=== PATIENT | female | born 1995 | race Caucasian/White ===

== ENCOUNTER 2019-09-05 09:53 | Inpatient (IN) ==
[2019-09-05] MEDS ORDERED: OXYTOCIN 30 UNITS/500 ML BAG IV PRN ×2 (10:18→19:00)
--- NOTE | 2019-09-05 11:17 | History & Physical Report ---
Date of Service September 05, 2019 Assessment & Plan (1) Normal labor: Plan admit. expectant management. arom / pit if indicated . epidural on request. fetus category one. anticipate . History of Present Illness Chief Complaint: contractions Primary Care Provider: NO PCP Patient is a 23yowf with iup at 39 4/7 weeks who presents to labor and delivery c/o contractions. Notes started earlier this am. no lof/vb. +fm. uncomplicated. labs--O+/ab-/ri/rprnr/hepb-/hiv-/gc/ct-/gbs neg/ failed 28 week gtt and passed 2 hr declined genetics/cf/sma Allergies Allergy/AdvReac Type Severity Reaction Status Date / Time cefadroxil Allergy Intermediate Hives Verified 09/01/19 09:42 Penicillins Allergy Intermediate Hives Verified 09/01/19 09:42 amoxicillin Allergy Hives Verified 09/01/19 09:42 Home Medications Home Medications Medication Instructions Recorded Confirmed Type prenat.vits,isabel,wtu-gyzj-eocqa 1 tab PO DAILY 01/29/19 09/05/19 History Patient History Medical History (Updated 09/05/19 @ 11:15 by Izzy Mata MD, FACOG) Encounter for anatomic survey Varicella vaccination Surgical History [place] teeth removed Family History Father Diabetes Uncle Diabetes Grandfather (Maternal) Hypertension Grandmother (Maternal) Heart disease Myocardial infarction Hypercholesteremia Ovarian cancer Social History Preferred Language: Tanzanian Communication Ability: Effective Fiberglasser Required: No Beliefs That Will Affect Care: None marital status: Single marital status details: Josue José (23) [phone] Current Living Situation: Significant Other Current Living Situation Comment: Quan and child, 2 dogs current occupational status: unemployed current occupation: homemaker Other Information That Helps Us Care for You: No Feels Safe at Home: Yes Smoking Status: Never smoker Second Hand Exposure: No ; Hx Alcohol Use: No Hx Substance Use: No OB History 02/16--40 weeks, , 9#8oz, no issues [employer] History hx of ascus paps no stds Review of Systems as per Subjective / HPI Physical Exam Constitutional: WD/WN, vitals as above Gastrointestinal (Abdomen): soft, gravid, nt Psychiatric: A+Ox3, euthymic affect Genitourinary: cx--/-2 (last check closed and long) toco--q2-4min efm--category one strip Results & Data Vital Signs (Past 12 Hours) Vital Signs Temp Pulse Resp BP 09/05/19 10:01 86 117/71 09/05/19 09:59 36.6 C 18 Code Status & VTE Plan VTE Prophylaxis Plan VTE Prophylaxis will be ordered: No Coding Level of Care Code None Diagnoses Normal labor O80; Z37.9
[2019-09-05 11:19] LABS: Hematocrit (blood only) 41.3 % (37-47); Hemoglobin 14.7 g/dL (12.0-16.0); Mean Corpuscular Hemoglobin 33.1 pg (25-34); Mean Corpuscular Hgb Conc 35.6 g/dL (32-36); Mean Platelet Volume 12.6 fL (7.4-10.4); Platelet Count 97 K/uL (130-400); Platelet Estimate Decreased (Normal); RDW Coefficient of Variation 14.9 % (11.5-14.5); RDW Standard Deviation 50.6 fL (36.4-46.3); Red Blood Count 4.44 M/uL (4.2-5.4); White Blood Count 9.01 K/uL (4.8-10.8)
[2019-09-05 12:52] LABS: Albumin Level 3.2 gm/dl (3.4-5.0); BUN Creatinine Ratio 13.5 (10-20); Calcium 8.9 mg/dl (8.5-10.1); Creatinine Clr Calc Pharmacy 168.6 ml/min; Est GFR (African American) 148.5; Est GFR (Non-African American) 128.1; Potassium 3.7 mmol/L (3.5-5.1)
[2019-09-05 12:55] LABS: Albumin Globulin Ratio 0.9 (0.9-2); Bilirubin,Total 0.5 mg/dl (0.2-1); Globulin 3.7 gm/dl (2.5-4.0); Total Protein 6.9 gm/dl (6.4-8.2)
[2019-09-05] MEDS: LACTATED RINGER'S 1,000 ML IV PRN ×3 (13:05→15:43)
--- NOTE | 2019-09-05 13:09 | Labor Progress Brief Note ---
Date of Service September 05, 2019 Subjective More uncomfortable Assessment & Plan (1) Normal labor: desires epidural. Once comfortable, plan arom. anticipate . Physical Exam Constitutional: WD/WN, vitals as above Psychiatric: A+Ox3, euthymic affect Genitourinary: cx--/-2/post efm--category one toco--q2-4min Results & Data Vital Signs (Past 12 Hours) Vital Signs Temp Pulse Resp BP 09/05/19 12:56 96 H 112/61 09/05/19 12:18 18 09/05/19 10:01 86 117/71 09/05/19 10:00 36.6 C 18 09/05/19 09:59 36.6 C 18 Coding Level of Care Code None Diagnoses Normal labor O80; Z37.9
[2019-09-05] MEDS ORDERED: BUPIVACAINE 0.25% 30 ML VIAL ONE (13:10)
[2019-09-05] MEDS ORDERED: fentaNYL citrate 100 MCG/2 ML VIAL ONE (13:10)
[2019-09-05] MEDS ORDERED: ePHEDrine sulfate 50 MG/ML AMP ONE (13:10)
[2019-09-05] MEDS ORDERED: fentaNYL 2MCG/ML ROPIV 1.25MG/ML 100 ML BAG EPI ONE (13:11)
--- NOTE | 2019-09-05 13:20 | Anesthesiology Consultation ---
Date of Service September 05, 2019 Assessment & Plan (1) Encounter for pre-operative examination: Chart Review Chart Review: Acceptable Risk for Labor Epidural History Height/Weight Height: 5 ft 6 in Weight: 91.172 kg Allergies Allergy/AdvReac Type Severity Reaction Status Date / Time cefadroxil Allergy Intermediate Hives Verified 09/01/19 09:42 Penicillins Allergy Intermediate Hives Verified 09/01/19 09:42 amoxicillin Allergy Hives Verified 09/01/19 09:42 Medications Home Medications Medication Instructions Recorded Confirmed Last Taken prenat.vits,isabel,mys-xwlc-lksof 1 tab PO DAILY 01/29/19 09/05/19 09/04/19 Active Medications Generic Name Dose Route Start Last Admin Trade Name Freq PRN Reason Stop Dose Admin Lactated Ringer's 1,000 mls @ 125 mls/hr 09/05/19 10:18 09/05/19 13:05 Lr IV 09/07/19 10:17 999 mls/hr .Q8H PRN Administration L&D Protocol Protocol Past Medical History Medical History Encounter for anatomic survey Varicella vaccination Past Family History Family History Father Diabetes Uncle Diabetes Grandfather (Maternal) Hypertension Grandmother (Maternal) Heart disease Myocardial infarction Hypercholesteremia Ovarian cancer Past Surgical History Surgical History [place] teeth removed Social History Smoking Status: Never smoker Hx Alcohol Use: No Hx Substance Use: No substance use type: does not use Physical Exam Vital Signs Last Vital Signs Temp 36.6 C 09/05/19 10:00 Pulse 96 H 09/05/19 12:56 Resp 18 09/05/19 12:18 BP 112/61 09/05/19 12:56 Testing Laboratory Results 09/05/19 10:29 09/05/19 12:13
[2019-09-05] MEDS ORDERED: NALOXONE HCL 0.4 MG/1 ML VIAL/CARP IV PRN (14:05)
[2019-09-05] MEDS ORDERED: NALOXONE HCL 1 MG in SODIUM CHLORIDE 0.9% 1000ML 1,000 ML IV PRN (14:05)
[2019-09-05] MEDS ORDERED: NALBUPHINE HCL INJ 10 MG/ML AMP IV PRN (14:05)
[2019-09-05] MEDS ORDERED: fentaNYL 2MCG/ML ROPIV 1.25MG/ML 100 ML BAG EPI PRN (14:05)
[2019-09-05] MEDS ORDERED: ATROPINE SULFATE 0.1 MG/ML 10ML SYR IV PRN (14:05)
[2019-09-05] MEDS ORDERED: DiphenhydrAMINE HCL 50 MG/ML VIAL IV PRN (14:05)
[2019-09-05] MEDS ORDERED: ePHEDrine sulfate 50 MG/ML AMP IV PRN ×2 (14:05)
--- NOTE | 2019-09-05 14:05 | Anesthesiology Consultation ---
Date of Service September 05, 2019 Assessment & Plan Chart Review Chart Review: Acceptable Risk for Labor Epidural Consults Requested none History Height/Weight Height: 5 ft 6 in Weight: 91.172 kg Allergies Allergy/AdvReac Type Severity Reaction Status Date / Time cefadroxil Allergy Intermediate Hives Verified 09/01/19 09:42 Penicillins Allergy Intermediate Hives Verified 09/01/19 09:42 amoxicillin Allergy Hives Verified 09/01/19 09:42 Medications Home Medications Medication Instructions Recorded Confirmed Last Taken prenat.vits,isabel,gkx-ucjp-rdnyf 1 tab PO DAILY 01/29/19 09/05/19 09/04/19 Active Medications Generic Name Dose Route Start Last Admin Trade Name Freq PRN Reason Stop Dose Admin Lactated Ringer's 1,000 mls @ 125 mls/hr 09/05/19 10:18 09/05/19 13:05 Lr IV 09/07/19 10:17 999 mls/hr .Q8H PRN Administration L&D Protocol Protocol Past Medical History Medical History Encounter for anatomic survey Varicella vaccination Past Family History Family History Father Diabetes Uncle Diabetes Grandfather (Maternal) Hypertension Grandmother (Maternal) Heart disease Myocardial infarction Hypercholesteremia Ovarian cancer Past Surgical History Surgical History [place] teeth removed Social History Smoking Status: Never smoker Hx Alcohol Use: No Hx Substance Use: No substance use type: does not use Physical Exam Vital Signs Last Vital Signs Temp 36.9 C 09/05/19 12:56 Pulse 99 H 09/05/19 14:02 Resp 18 09/05/19 12:56 BP 94/50 L 09/05/19 14:02 Pulse Ox 99 09/05/19 14:02 Testing Laboratory Results 09/05/19 10:29 09/05/19 12:13
--- NOTE | 2019-09-05 15:45 | Labor Progress Brief Note ---
Date of Service September 05, 2019 Subjective comfortable after epidural Assessment & Plan (1) Normal labor: continute current management. Fetus category one. anticipate . Physical Exam Constitutional: WD/WN, vitals as above Psychiatric: A+Ox3, euthymic affect Genitourinary: cx--7-8, 90/-1 toco--q2-3min arom--clear efm--category one Results & Data Vital Signs (Past 12 Hours) Vital Signs Temp Pulse Resp BP Pulse Ox 09/05/19 15:42 96 H 99 09/05/19 15:37 100 H 99 09/05/19 15:32 36.9 C 98 H 18 100 09/05/19 15:27 103 H 99 09/05/19 15:22 99 H 99 09/05/19 15:17 102 H 100 09/05/19 15:15 98 H 108/57 L 09/05/19 15:12 100 H 99 09/05/19 15:07 100 H 99 09/05/19 15:04 102 H 102/57 L 09/05/19 15:02 105 H 99 09/05/19 14:57 107 H 99 09/05/19 14:55 96 H 102/54 L 09/05/19 14:52 94 H 99 09/05/19 14:47 89 98 09/05/19 14:44 92 H 98/53 L 09/05/19 14:42 92 H 98 09/05/19 14:40 97 H 99/50 L 09/05/19 14:37 93 H 98 09/05/19 14:33 93 H 105/55 L 09/05/19 14:32 98 H 99 09/05/19 14:27 98 H 100 09/05/19 14:23 102 H 103/56 L 09/05/19 14:22 103 H 100 09/05/19 14:19 107 H 97/59 L 09/05/19 14:17 99 H 99 09/05/19 14:15 109 H 94/52 L 09/05/19 14:12 103 H 100 09/05/19 14:11 110 H 106/55 L 09/05/19 14:09 110 H 102/59 L 09/05/19 14:07 102 H 98/51 L 100 09/05/19 14:05 98 H 100/52 L 09/05/19 14:04 103 H 99/52 L 09/05/19 14:02 99 H 94/50 L 99 09/05/19 14:01 96 H 92/52 L 09/05/19 13:59 98 H 103/51 L 09/05/19 13:57 100 H 100 09/05/19 13:54 88 140/65 09/05/19 13:52 104 H 139/67 100 09/05/19 13:48 93 H 121/67 09/05/19 13:47 99 H 99 09/05/19 13:43 84 111/61 09/05/19 13:42 86 98 09/05/19 13:37 99 H 97 09/05/19 12:56 36.9 C 96 H 18 112/61 09/05/19 12:18 18 09/05/19 10:01 86 117/71 09/05/19 10:00 36.6 C 18 09/05/19 09:59 36.6 C 18 Coding Level of Care Code None Diagnoses Normal labor O80; Z37.9
[2019-09-05] MEDS ORDERED: METHYLERGONOVINE MALEATE 0.2 MG/ML AMP ONE (18:18)
--- NOTE | 2019-09-05 18:29 | Delivery Summary ---
Vaginal Delivery Summary Date of Service September 05, 2019 Vaginal Delivery Summary Pre-operative Diagnosis: at 39 weeks active labor Post-operative Diagnosis: same Procedure: epidural arom labial laceration with repair EBL: 400cc Anesthesia: epidural Procedure: The patient pushed for two contractions to deliver a viable male in noni position. The nose and mouth were bulb suctioned on the perineum and the rest of the was then delivered without difficulty. The baby was vigorous. The nose and mouth were again bulb suctioned and the was placed in the maternal abdomen for drying and attention. Cord was clamped and cut at one minute of life. Cord blood and segment obtained. Placenta delivered spontaneous, intact with a three vessel cord. Cervix/sulci/rectum were intact. A small upper labial laceration in the area of the clitoris was repaired in the normal standard fashion. Hemostasis obtained with dilute pitocin and fundal massage. Apgars were 8/9. Mother and baby doing well at the end of the delivery. [facility] Vaginal Delivery Charge Vaginal Delivery Codes: 42824 global code for the antepartum, delivery, and post-
[2019-09-05] MEDS ORDERED: METHYLERGONOVINE MALEATE 0.2 MG/ML AMP IM ONE (18:31)
[2019-09-05] MEDS ORDERED: ACETAMINOPHEN 325 MG TAB PO PRN (18:31)
[2019-09-05] MEDS ORDERED: BENZOCAINE 20% AER SPR 82.5 GM CAN EXT PRN (19:00)
[2019-09-05] MEDS ORDERED: bisacodyL 10 MG SUPP PR PRN (19:00)
[2019-09-05] MEDS ORDERED: HYDROCORTISONE ACETATE 25 MG SUPP PR PRN (19:00)
[2019-09-05] MEDS ORDERED: SUPERCREAM 0.870% 15 GM JAR EXT PRN (19:00)
[2019-09-05] MEDS ORDERED: OXYCODONE/ACETAMINOPHEN 5mg/325mg TAB PO PRN (19:00)
[2019-09-05] MEDS ORDERED: DIPHTHERIA/TETANUS/PERTUSSIS 0.5 ML SYR/VIAL IM ONE (19:00)
--- NOTE | 2019-09-05 20:06 | Anesthesia Procedure Note ---
Date of Service September 05, 2019 Anesthesia Post Epidural Note Vital Signs Vital Signs: Temp Pulse Resp BP Pulse Ox 36.8 C 93 H 18 125/80 99 09/05/19 19:10 09/05/19 19:57 09/05/19 19:10 09/05/19 19:57 09/05/19 18:22 Pain Intensity Bilateral Abdomen: Pain Intensity: 0 Notes Mental Status: alert / awake / arousable Nausea / Vomiting: adequately controlled Pain: adequately controlled Airway Patency, RR, SpO2: stable & adequate BP & HR: stable & adequate Hydration State: stable & adequate Neuraxial Anesthesia: was administered and sensory block is resolving Anesthetic Complications: no major complications apparent and Pt Satisfied with anesthetic care Epidural: Removed without complications and With tip intact
[2019-09-05] MEDS: IBUPROFEN 600 MG TAB PO PRN (21:38)
[2019-09-05] MEDS: DOCUSATE SODIUM 100 MG CAP PO SCH (21:38)
[2019-09-06] MEDS: IBUPROFEN 600 MG TAB PO PRN (04:11)
[2019-09-06 06:20] LABS: Hematocrit (blood only) 38.9 % (37-47); Hemoglobin 13.3 g/dL (12.0-16.0)
--- NOTE | 2019-09-06 07:07 | Obstetrical Progress Note ---
Date of Service September 06, 2019 Assessment & Plan (1) Vaginal delivery: Doing well, routine care. Day #:: 1 Subjective Ambulation: ambulating normally Voiding: no voiding problems Passing Gas:: No Diet Tolerance:: regular diet Lochia:: Small Feeding Type:: bottle feeding Physical Exam Constitutional WD/WN, vitals as above Cardiovascular Extremities: + edema (trace); no calf tenderness Gastrointestinal (Abdomen) soft, nt, nd ff/nt 1 below u Psychiatric A+Ox3, euthymic affect Results & Data Vital Signs (Past 12 Hours) Vital Signs Temp Pulse Pulse Resp BP BP 09/05/19 23:50 36.9 C 78 18 130/85 09/05/19 20:35 36.7 C 83 18 125/79 09/05/19 20:12 86 128/79 09/05/19 20:10 18 09/05/19 19:57 93 H 125/80 09/05/19 19:42 83 129/84 09/05/19 19:40 18 09/05/19 19:27 86 123/71 09/05/19 19:12 93 H 127/74 09/05/19 19:10 36.8 C 18
[2019-09-06] MEDS: PRENATAL VITAMIN 1 TAB PO SCH (08:35)
[2019-09-06] MEDS: DOCUSATE SODIUM 100 MG CAP PO SCH ×2 (08:35→20:55)
[2019-09-06 12:18] VITALS: O2SAT 97
[2019-09-06] MEDS ORDERED: bisacodyL 5 MG TABEC PO SCH (20:00)
[2019-09-07] MEDS: IBUPROFEN 600 MG TAB PO PRN (05:08)
--- NOTE | 2019-09-07 06:23 | Obstetrical Progress Note ---
Date of Service <Luis Enrique Chand DO - Last Filed: 09/07/19 06:23> September 07, 2019 Assessment & Plan <DO Mariah John Last Filed: 09/07/19 06:23> (1) Vaginal delivery: -PPD#2 -Vitals reviewed, WNL - GBS -, Blood Type O+ - Clinically stable. - Feels well today. Eating well, voiding well, ambulating well. - Pain well controlled. - Routine post- care - After discharge will have [address] Mata. Day #:: 2 Subjective <Luis Enrique Chand DO - Last Filed: 09/07/19 06:23> Ambulation: ambulating normally Voiding: no voiding problems Passing Gas:: Yes Diet Tolerance:: regular diet Lochia:: Small Feeding Type:: bottle feeding Current Pain Level(1-10): 1 (improves with analgesics) Patient is a 23 PPD#2. Patient states that she is feeling well today and that her pain is well controlled. She has no other complaints at this time. Constitutional: no fever and no chills Respiratory: no cough, no dyspnea and no wheezing Cardiovascular: + edema; no chest pain, no dyspnea, no palpitations and no calf pain Breast: no breast pain Gastrointestinal: no abdominal pain, no nausea and no vomiting Genitourinary (female): no dysuria and no difficulty urinating Neurologic: no headache(s) Physical Exam <DO Mariah John Last Filed: 09/07/19 06:23> Constitutional WD/WN, vitals as above Respiratory normal respiratory effort, lungs clear to auscultation Cardiovascular Rate/Rhythm: regular rate and regular rhythm Heart Sounds: normal S1 and normal S2; no click, no gallop, no murmur and no cardiac rub Extremities: + edema (trace); no calf tenderness Gastrointestinal (Abdomen) Inspection/Auscultation: abdomen normal to inspection and normal bowel sounds Percussion/Palpation: abdomen soft; abdomen nontender Genitourinary OB Exam Abdomen: + fundal height Fundus: + firm and + relation to umbilicus (2cm below ); not tender and not boggy Results & Data <DO Mariah John Last Filed: 09/07/19 06:23> Vital Signs (Past 12 Hours) Vital Signs Temp Pulse Resp BP 09/06/19 23:40 36.8 C 78 20 124/82 09/06/19 19:30 36.5 C 84 18 127/82 <Izzy Mata MD, FACOG - Last Filed: 09/07/19 07:34> Co-Signing Physician Notes Resident Physician Supervision Note: I interviewed and examined the patient. Discussed with Dr. Chand and agree with findings and plan as documented in the note. Any exceptions or clarifications are listed here: Doing well. Plan d/c. Instructions given. Documented By: Izzy Mata MD, FACOG Resident Activity Tracking <Luis Enrique Chand DO - Last Filed: 09/07/19 06:23> Resident Involvement: Resident Care Provided Care Provided: Adult Hospital Medicine
[2019-09-07] MEDS: DOCUSATE SODIUM 100 MG CAP PO SCH (08:12)
[2019-09-07] MEDS: PRENATAL VITAMIN 1 TAB PO SCH (08:12)
[2019-09-07 17:18] VITALS: BP 135/89; PULSE 66; TEMP 98.1
== END 2019-09-07 18:35 | disposition home or self-care (01) | DRG 807 ==
LOC: OPB 09:53 → 4S1 09:55 → 4S2 20:34
DX: Z88.0 Allergy status to penicillin; O70.0 First degree perineal laceration during delivery; Z88.1 Allergy status to other antibiotic agents; Z3A.39 39 weeks gestation of pregnancy; Z37.0 Single live birth